=== PATIENT | female | born 1960 | race Asian ===

== ENCOUNTER 2022-12-14 13:53 | Outpatient (CLI) | payer BC | END 2022-12-14 13:54 | disposition home or self-care (01) | LOC: CSHULT 13:53 | PROVIDERS: ATTEND Urology | DX: N20.0 Calculus of kidney (principal); N28.1 Cyst of kidney, acquired | CPT/HCPCS: 76770 ==

== ENCOUNTER 2023-11-18 08:59 | Outpatient (CLI) | payer BC | END 2023-11-18 09:00 | disposition home or self-care (01) | LOC: CSHULT 08:59 | PROVIDERS: ATTEND Family Medicine | DX: N20.0 Calculus of kidney (principal); N28.1 Cyst of kidney, acquired; N28.9 Disorder of kidney and ureter, unspecified | CPT/HCPCS: 76770 ==